=== PATIENT | male | born 1950 | race Caucasian/White ===

== ENCOUNTER 2018-04-29 06:25 | Inpatient (IN) | payer BC ==
[~2018-04-29] VITALS: Ht 182.9 cm; Wt 87.5 kg
[~2018-04-29 06:25] MED LIST: FLAGYL250 MG PO; LISINOPRIL30 MG PO; NORCO 7.5-3251 EACH PO; NORVASC5 MG PO; PANTOPRAZOLE SO40 MG PO; TRAMADOL PO; TRAZODONE PO; ULTRAM50 MG PO; XELJANZ PO; Z.0.NEXIUM40 MG PO; Z.0.PLAQUENIL200 MG PO; Z.0.ZESTRIL5 MG PO
[2018-04-29 07:52] LABS: BASOPHILS % 0.3 % (0.0-1.0); HEMATOCRIT 33.2 % (38.2-49.6); HEMOGLOBIN 12.2 g/dL (14.0-18.0); LYMPHOCYTES # (AUTO) 0.1 (1.0-3.2); LYMPHOCYTES % 1.2 % (18.0-39.1); MEAN CORPUSCULAR HEMOGLOBIN 36.4 pg (28-32); MEAN CORPUSCULAR HGB CONC 36.7 g/dL (31-35); MEAN CORPUSCULAR VOLUME 99.1 fL (81-99); MONOCYTES # (AUTO) 0.5 (0.2-0.8); MONOCYTES % 5.6 % (4.4-11.3); NEUTROPHILS # (AUTO) 8.4 (2.1-6.9); NEUTROPHILS % 91.1 % (38.7-80.0); PLATELET COUNT 142 x10e3/uL (140-360); RED BLOOD COUNT 3.35 x10e6/uL (4.3-5.7); RED CELL DISTRIBUTION WIDTH 13.1 % (11.7-14.4)
[2018-04-29] MEDS ORDERED: ONDANSETRON HCL INJ 2 MG/ML VIAL IV STA (07:54)
[2018-04-29] MEDS ORDERED: MORPHINE SULFATE 2 MG/ML SYR IV STA (07:54)
[2018-04-29] MEDS ORDERED: ACETAMINOPHEN 325 MG TAB PO ONE (08:00)
[2018-04-29] MEDS ORDERED: SODIUM CHLORIDE 0.9% 1000ML 1,000 ML IV SCH ×2 (08:00→12:15)
[2018-04-29 08:01] LABS: INR 1.22; PROTHROMBIN TIME 14.5 seconds (11.9-14.5)
[2018-04-29 08:02] LABS: PARTIAL THROMBOPLASTIN TIME 33.7 seconds (23.8-35.5)
[2018-04-29 08:09] LABS: ALANINE AMINOTRANSFERASE 22 IU/L (0-55); ALBUMIN 3.3 g/dL (3.5-5.0); ALBUMIN/GLOBULIN RATIO 0.8 (0.8-2.0); ALKALINE PHOSPHATASE 47 IU/L (40-150); ANION GAP 16.6 mmol/L (8-16); BLOOD UREA NITROGEN 20 mg/dL (7-26); BUN/CREATININE RATIO 19 (6-25); CARBON DIOXIDE 25 mmol/L (22-29); CHLORIDE 84 mmol/L (98-107); CREATINE KINASE 472 IU/L (30-200); CREATININE, SERUM 1.06 mg/dL (0.72-1.25); EST GLOMERULAR FILTRATION RATE > 60 ML/MIN (60-); GLUCOSE 93 mg/dL (74-118); MAGNESIUM 1.2 MG/DL (1.3-2.1); POTASSIUM 3.6 mmol/L (3.5-5.1); SODIUM 122 mmol/L (136-145)
[2018-04-29] MEDS ORDERED: KETOROLAC TROMETHAMINE 30 MG/ML VIAL IV ONE (09:30)
[2018-04-29 10:24] LABS: CLARITY,URINE SL CLOUDY (CLEAR); COLOR,URINE AMBER (YELLOW)
[2018-04-29 10:25] LABS: BILIRUBIN,URINE NEGATIVE (NEGATIVE); KETONES,URINE NEGATIVE (NEGATIVE); LEUKOCYTE ESTERASE ,URINE NEGATIVE (NEGATIVE); NITRITE,URINE NEGATIVE (NEGATIVE); PROTEIN,URINE DIPSTICK 1+ (NEGATIVE); URINE UROBILINOGEN 0.2 mg/dL (0.2 - 1)
[2018-04-29 10:36] LABS: BAND NEUTROPHILS % (MANUAL) 5 %; LYMPHOCYTES % (MANUAL) 1 % (19-48); MONOCYTES % (MANUAL) 4 % (3.4-9.0); MYELOCYTES % (MANUAL) 1 % (0-0); NEUTROPHILS % (MANUAL) 89 % (40-74)
[2018-04-29 10:40] LABS: BACTERIA,URINE RARE /HPF; EPITHELIAL CELLS,URINE FEW /LPF
[2018-04-29 10:42] LABS: PLATELET ESTIMATE SLIGHTLY DECREASED; PLATELET MORPHOLOGY COMMENT NORMAL; RBC MORPHOLOGY COMMENT NORMAL
--- NOTE | 2018-04-29 11:24 | Diagnostic Imaging Report ---
PROCEDURE: A single AP view of the chest. COMPARISON: None. INDICATIONS: BODY ACHES ALL OVER FINDINGS: Lines/tubes: None. Lungs: Low lung volumes. Patchy bibasilar opacities, right greater than left. No evidence of pulmonary edema. Pleura: There is no pleural effusion or pneumothorax. Heart and mediastinum: The cardiomediastinal silhouette is unremarkable. Bones: No acute bony abnormality. IMPRESSION: Low lung volumes with patchy bibasilar opacities which could reflect atelectasis or pneumonia in the appropriate clinical setting. Dictated by: LON MERCADO M.D. on 04/29/2018 at 7:53 Electronically approved by: LON MERCADO M.D. on 04/29/2018 at 7:53
[2018-04-29] MEDS ORDERED: HYDROMORPHONE 1MG/1ML INJ IV ONE ×2 (12:00→16:45)
--- NOTE | 2018-04-29 12:33 | Diagnostic Imaging Report ---
EXAMINATION: CT of the abdomen and pelvis without contrast. TECHNIQUE: Spiral CT images of the abdomen and pelvis were performed from the lung bases to the lesser trochanters. No intravenous contrast was given per physician's request Coronal and sagittal reformatted images were obtained. COMPARISON: CT abdomen and pelvis with contrast 07/12/2017 CLINICAL HISTORY:Right flank pain DISCUSSION: ABSENCE OF INTRAVENOUS CONTRAST DECREASES SENSITIVITY FOR DETECTION OF FOCAL LESIONS AND VASCULAR PATHOLOGY. ABDOMEN/PELVIS: LOWER THORAX: Stable linear opacities in the anterior right lower lobe (series 3, image 7), lingula (series 3, image 31) and right middle lobe (series 3, image 7), consistent with scarring. Atherosclerotic calcification of the coronary arteries and thoracic aorta. HEPATOBILIARY: Diffuse hepatic steatosis. 1.1 cm fluid density lesion in hepatic segment V (series 3, image 65), consistent with a simple cyst. 4 mm hypodense lesion in hepatic segment IV (series 3, image 45), which is too small to characterize. No other focal lesions. No intra or extrahepatic biliary ductal dilation. GALLBLADDER: 3-4 mm calcified gallstone in the dependent portion of the gallbladder lumen. No wall thickening. SPLEEN: No splenomegaly. PANCREAS: No focal masses or ductal dilatation. Marked pancreatic atrophy. ADRENALS: No adrenal nodules. KIDNEYS/URETERS: No renal or ureteral calculi, hydronephrosis or obstruction. No contour abnormalities. No significant perinephric stranding. PELVIC ORGANS/BLADDER: No bladder focal lesions or thickening. No bladder calculi. Prostate and seminal vesicles are unremarkable. PERITONEUM/RETROPERITONEUM: No free air or fluid. LYMPH NODES: No intra-abdominal,retroperitoneal, pelvic or inguinal lymphadenopathy. VESSELS: Atherosclerotic calcification of the abdominal aorta and iliac vessels. GI TRACT: No bowel dilation or evidence of obstruction. Appendix is well identified and normal in caliber. BONES AND SOFT TISSUES: No aggressive lytic lesions. Marked multilevel degenerative disc changes predominantly at L3-L4 L4-L5 and L5-S1, with associated rightward curvature of the lower lumbosacral spine. Facet hypertrophy L4-S1. Stable bone islands in the left femoral head. IMPRESSION: 1. No renal, ureteral or bladder calculi. No hydronephrosis or obstruction. 2. Diffuse hepatic steatosis. 3. Cholelithiasis, without CT evidence of cholecystitis. Signed by: Dr. Jose Forbes M.D. on 04/29/2018 12:30 PM
[2018-04-29] MEDS ORDERED: HYDROCODONE/APAP 7.5MG-325MG 1 EA TAB PO PRN (13:45)
[2018-04-29] MEDS ORDERED: HYDROMORPHONE 1MG/1ML INJ IV PRN (13:45)
[2018-04-29] MEDS: CEFTRIAXONE SOD 1 GM VIAL IV SCH (14:02)
[2018-04-29] MEDS ORDERED: ONDANSETRON HCL INJ 2 MG/ML VIAL ONE (14:19)
[2018-04-29] MEDS: AZITHROMYCIN 500MG/NS 250 ML 250 ML IV SCH (14:20)
[2018-04-29] MEDS ORDERED: ONDANSETRON HCL INJ 2 MG/ML VIAL IV ONE (14:30)
[2018-04-29] MEDS ORDERED: HYDROCHLOROTHIA25 MG PO (14:57)
[2018-04-29] MEDS: ALBUTEROL/IPRATROPIUM 3 ML NEB NEB SCH ×3 (15:00→23:00)
[2018-04-29] MEDS: SODIUM CHLORIDE 0.9% 1000ML 1,000 ML IV SCH ×2 (15:29→22:50)
[2018-04-29 16:30] VITALS: BP 133/91
[2018-04-29 17:51] VITALS: BP 155/92
[2018-04-29 17:52] VITALS: BP 133/92
[2018-04-29] MEDS ORDERED: ACETAMINOPHEN 325 MG TAB PO PRN (18:15)
[2018-04-29] MEDS ORDERED: MORPHINE SULFATE INJ 4 MG/ML INJ IV PRN (18:15)
[2018-04-29] MEDS: HYDROCODONE/APAP 10MG-325MG TAB PO PRN ×2 (18:42→22:35)
[2018-04-29] MEDS ORDERED: FENTANYL 25 MCG/HR PATCH TOP SCH (18:45)
[2018-04-29 20:00] VITALS: BP 146/92
[2018-04-29] MEDS: MORPHINE SULFATE 2 MG/ML SYR IV PRN (20:15)
[2018-04-29] MEDS: TRAZODONE HCL 50 MG TAB PO SCH (20:16)
[2018-04-29] MEDS: TRAMADOL HCL 50 MG TAB PO SCH (23:10)
[2018-04-30] VITALS (13 sets, daily range): BP systolic 138–166; BP diastolic 60–116
[2018-04-30] MEDS: CEFTRIAXONE SOD 1 GM VIAL IV SCH ×2 (00:36→13:00)
[2018-04-30] MEDS: MORPHINE SULFATE 2 MG/ML SYR IV PRN ×4 (00:37→23:26)
[2018-04-30] MEDS: HYDROCODONE/APAP 10MG-325MG TAB PO PRN ×3 (02:03→14:00)
[2018-04-30 03:26] LABS: BASOPHILS % 0.4 % (0.0-1.0); EOSINOPHILS % 0.4 % (0.0-6.0); HEMATOCRIT 33.5 % (38.2-49.6); HEMOGLOBIN 12.3 g/dL (14.0-18.0); LYMPHOCYTES # (AUTO) 0.2 (1.0-3.2); LYMPHOCYTES % 8.4 % (18.0-39.1); MEAN CORPUSCULAR HGB CONC 36.7 g/dL (31-35); MONOCYTES # (AUTO) 0.3 (0.2-0.8); MONOCYTES % 11.8 % (4.4-11.3); NEUTROPHILS # (AUTO) 2.1 (2.1-6.9); NEUTROPHILS % 78.2 % (38.7-80.0); PLATELET COUNT 104 x10e3/uL (140-360); RED BLOOD COUNT 3.42 x10e6/uL (4.3-5.7)
[2018-04-30 03:43] LABS: ALANINE AMINOTRANSFERASE 34 IU/L (0-55); ALBUMIN/GLOBULIN RATIO 0.8 (0.8-2.0); ALKALINE PHOSPHATASE 41 IU/L (40-150); ANION GAP 17.6 mmol/L (8-16); BLOOD UREA NITROGEN 13 mg/dL (7-26); BUN/CREATININE RATIO 17 (6-25); CALCIUM 8.5 mg/dL (8.4-10.2); CARBON DIOXIDE 22 mmol/L (22-29); CHLORIDE 87 mmol/L (98-107); CREATININE, SERUM 0.78 mg/dL (0.72-1.25); EST GLOMERULAR FILTRATION RATE > 60 ML/MIN (60-); GLUCOSE 69 mg/dL (74-118); POTASSIUM 3.6 mmol/L (3.5-5.1); SODIUM 123 mmol/L (136-145)
[2018-04-30] MEDS: ALBUTEROL/IPRATROPIUM 3 ML NEB NEB SCH ×6 (03:45→23:15)
[2018-04-30 03:48] LABS: BAND NEUTROPHILS % (MANUAL) 5 %; EOSINOPHILS % (MANUAL) 1 % (0-7); LYMPHOCYTES % (MANUAL) 10 % (19-48); MONOCYTES % (MANUAL) 10 % (3.4-9.0); NEUTROPHILS % (MANUAL) 74 % (40-74)
[2018-04-30 03:49] LABS: PLATELET ESTIMATE MODERATELY DECREASED; PLATELET MORPHOLOGY COMMENT NORMAL; RBC MORPHOLOGY COMMENT NORMAL
[2018-04-30] MEDS: TRAMADOL HCL 50 MG TAB PO SCH (05:30)
[2018-04-30] MEDS ORDERED: SODIUM CHLORIDE 1 GM TAB PO SCH (07:45)
[2018-04-30] MEDS: AZITHROMYCIN 500MG/NS 250 ML 250 ML IV SCH (08:27)
[2018-04-30] MEDS: HYDROXYCHLOROQUINE SULFATE 200 MG TAB PO SCH (08:28)
[2018-04-30] MEDS: XELJANZ 5 MG PO SCH ×2 (08:28→18:32)
[2018-04-30] MEDS: LISINOPRIL 20 MG TAB PO SCH (08:28)
[2018-04-30] MEDS: SODIUM CHLORIDE 0.9% 1000ML 1,000 ML IV SCH ×2 (08:50→20:52)
[2018-04-30] MEDS ORDERED: NON-FORMULARY MEDICATION (Lisinopril 30 MG) PO SCH (09:00)
[2018-04-30] MEDS: LORATADINE 10 MG TAB PO SCH (09:51)
[2018-04-30] MEDS: LIDOCAINE 5% PATCH TP SCH (10:24)
[2018-04-30 10:32] LABS: BASOPHILS % 0.4 % (0.0-1.0); HEMATOCRIT 32.7 % (38.2-49.6); HEMOGLOBIN 12.1 g/dL (14.0-18.0); LYMPHOCYTES # (AUTO) 0.1 (1.0-3.2); LYMPHOCYTES % 3.5 % (18.0-39.1); MEAN CORPUSCULAR HEMOGLOBIN 35.9 pg (28-32); MONOCYTES # (AUTO) 0.4 (0.2-0.8); MONOCYTES % 16.6 % (4.4-11.3); NEUTROPHILS % 78.7 % (38.7-80.0); PLATELET COUNT 105 x10e3/uL (140-360); RED BLOOD COUNT 3.37 x10e6/uL (4.3-5.7); RED CELL DISTRIBUTION WIDTH 12.9 % (11.7-14.4)
--- NOTE | 2018-04-30 12:25 | Diagnostic Imaging Report ---
KNEE RIGHT THREE VIEWS - 3 views HISTORY: Paiin status post fall. COMPARISON: None available. FINDINGS: Bones: No acute displaced fracture. Ill-defined lucent lesion with sclerotic margins in the distal medial femoral metadiaphysis is nonspecific, and may reflect a partially calcified bone infarct. Joints: Status post total knee arthroplasty with prosthesis in adequate position. Soft tissues: [Moderate volume suprapatellar effusion]. IMPRESSION: 1. Status post total knee arthroplasty with prosthesis in adequate position. 2. Ill-defined lucent lesion with sclerotic margins in the distal medial femoral metadiaphysis is nonspecific, and may reflect a partially calcified bone infarct. 3. Moderate volume suprapatellar effusion. Signed by: Dr. Keturah West M.D. on 04/30/2018 12:22 PM
--- NOTE | 2018-04-30 12:27 | Diagnostic Imaging Report ---
SHOULDER RIGHT COMPLETE - 3 views HISTORY: Status post fall. COMPARISON: None available. FINDINGS: Bones: No acute displaced fracture. Tiny ossicles projected superior to the distal clavicle nonspecific, possibly related to above.. Joints: Moderate degenerative changes of the glenohumeral joint. Mild degenerative changes of the AC joint. Elevation of the humeral head may be positional or related to rotator cuff pathology. Soft tissues: Mild calcific tendinosis. Soft tissue swelling superior to the AC joint. IMPRESSION: Moderate degenerative changes of the glenohumeral joint. Mild degenerative changes of the AC joint. Signed by: Dr. Keturah West M.D. on 04/30/2018 12:24 PM
[2018-04-30] MEDS: METOCLOPRAMIDE HCL 10 MG/2ML VIAL IV SCH ×3 (12:30→20:52)
[2018-04-30] MEDS: IMMUNE GLOBULIN IV SCH (12:30)
[2018-04-30] MEDS ORDERED: DIPHENHYDRAMINE HCL INJ 50 MG/ML VIAL IV PRN (13:15)
[2018-04-30] MEDS ORDERED: HYDROCODONE/APAP 10MG-325MG TAB PO PRN (14:30)
[2018-04-30] MEDS ORDERED: ERTAPENEM 1GM/NS 100ML 100 ML IV SCH (14:45)
[2018-04-30] MEDS ORDERED: HYDROMORPHONE 1MG/1ML INJ IV NR ×2 (14:52→18:15)
[2018-04-30] MEDS ORDERED: ERTAPENEM 1 GM VIAL IV SCH (15:00)
[2018-04-30] MEDS ORDERED: NALOXONE HCL INJ 0.4 MG/ML AMP IV PRN (17:00)
[2018-04-30] MEDS ORDERED: SODIUM CHLORIDE 0.9% 500ML 500 ML ONE (17:09)
--- NOTE | 2018-04-30 17:17 | History and Physical ---
CHIEF COMPLAINT: Rheumatoid arthritis, pain and fever. HISTORY OF PRESENT ILLNESS: The patient is a 67-year-old man. He has a history of severe rheumatoid arthritis and chronic inflammatory demyelinating polyneuropathy. He was receiving IVIG through Dr. Mustafa's office. He was also receiving a tumor necrosis factor inhibitor through Dr. Vergara. He came to the hospital complaining of worsening pain. The most severe pain was in his lower back as well as his left shoulder. He has received some morphine with minimal relief. He was also found to have a low sodium of 123 in the emergency department. He had a white blood cell count of 2.6 and hemoglobin of 12.1. He had a platelet count of 105. The VAP-vc-ndqexroeax ratio is normal. He also had a low-grade fever. PAST SURGERIES 1. Status post cervical spine fusion. 2. Knee surgery. 3. Thumb surgery. PAST MEDICAL HISTORY 1. Hypertension. 2. Rheumatoid arthritis. 3. Chronic demyelinating inflammatory polyneuropathy. He is seeing Dr. Yinka Chris as an outpatient. During the prior admission to the hospital, he saw Dr. King. He also sees Dr. Mustafa for neurology and Dr. Vergara for rheumatology. SOCIAL HISTORY: He is not a drinker or smoker. FAMILY HISTORY: Noncontributory. ALLERGIES: THERE ARE NO KNOWN ALLERGIES. REVIEW OF SYSTEMS: He has no headache. There is no neck pain. He is not having any chest pain. He does note pain in his shoulder and his lower back. He has no abdominal pain. He has no nausea or vomiting. He is not having any leg edema. He has been more confused. PHYSICAL EXAMINATION VITALS: The patient is afebrile. The blood pressure is 143/46, and the pulse is 101. HEENT: No facial swelling or erythema. The nasal mucosa is normal. The oropharynx is normal. LYMPHATIC: No submandibular, cervical or supraclavicular adenopathy. CARDIAC: Regular rate and rhythm with a normal S1 and S2. LUNGS: Auscultation of the lungs reveals clear breath sounds bilaterally. There is no wheezing. ABDOMEN: Soft and nontender. There is no rebound or guarding. EXTREMITIES: Some swelling in the knee. He has changes consistent with rheumatoid arthritis. LABORATORY DATA: Sodium is 123. The XLP-ro-qhewlhnpuw ratio is normal. The bilirubin is 1.7. The white blood cell count is 2.6, hemoglobin 12.1, platelet count 105. RADIOGRAPHIC DATA: Chest x-ray shows low lung volumes with possible bibasilar opacities. IMPRESSION 1. Severe polyarticular rheumatoid arthritis with worsening pain. 2. Fever while on infusions for rheumatoid arthritis. 3. Thrombocytopenia. 4. Leukopenia. 5. Chronic degenerative disease in the cervical and lumbar spine. 6. Chronic inflammatory demyelinating polyneuropathy. PLAN 1. The patient will need aggressive management to try and control his pain. 2. Panculture and begin antibiotics. 3. ID consult. 4. Fluid restriction. 5. Monitor sodium. 6. Monitor mental status. 7. Restart IVIG. 8. Obtain results of CT scans of the lumbar and cervical spine. Job#: [id number]
[2018-04-30] MEDS ORDERED: HYDROMORPHONE 1MG/1ML INJ ONE (17:49)
[2018-04-30] MEDS: VANCOMYCIN HCL 1.25 GM in SODIUM CHLORIDE 0.9% 250ML 300 ML IV SCH (18:33)
--- NOTE | 2018-04-30 18:54 | Consultation ---
DATE OF CONSULTATION: April 30, 2018 NEUROLOGY CONSULTATION HISTORY OF PRESENT ILLNESS: Mr. 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 Mr. Grimm was diagnosed with CIDP approximately 4 years ago. His outpatient neurologist, Dr. Rip Mustafa, recommended treatment with infusions of IVIG. However, the patient declined such treatment for approximately 3-1/2 years. During that time, the patient's weakness in his legs and feet, sensory loss in his feet, and gait and balance progressively worsened. After discussion with his and Dr. Mustafa, Mr. Grimm did agree to undergo IVIG infusions. The patient received his induction infusion of 2 g/kg intravenously divided over 5 days in October 2017. He then received a maintenance dose of IVIG 1 g/kg intravenously every 4 weeks thereafter. His last dose of IVIG was given in late February 2018. While receiving treatment with IVIG, the strength in the patient's lower extremities improved. Sensation returned to his feet. His gait and balance improved. Mr. Grimm was able to ambulate unassisted in his home. In the community, he carried a cane with him, but did not always use it. Despite this improvement, Mr. Grimm reported diminished benefit with each successive infusion of IVIG. Therefore, in February 2018, Dr. Mustafa recommended increasing his maintenance dose to 2 g/kg. Unfortunately, treatment with the increased dose of IVIG was denied by the patient's insurance company. This denial has resulted in the patient going without IVIG for the past 6 to 7 weeks. During that time, the patient has experienced worsening lower extremity weakness, loss of sensation in both feet, and impairment of balance and gait. In the past several weeks, Mr. Grimm has fallen twice, with the most recent fall being 10 days ago. The 1st fall resulted from the patient becoming twisted in a blanket and falling to the floor, injuring his left arm. The most recent fall occurred while the patient was going down stairs. He tripped over his feet and fell, injuring his right hand and arm. Mr. Grimm did not hit his head as a result of either fall. There was no loss of consciousness associated with either fall. REVIEW OF SYSTEMS: Confusion, weakness of the legs, numbness of the legs and feet, impairment of balance and gait, falls times 2. Otherwise, the 12-point review of systems is unremarkable. Of note, though the patient is being treated for possible pneumonia, Mr. Grimm does not report shortness of breath, productive cough, wheezing, or other symptoms commonly associated with a respiratory infection. PAST MEDICAL HISTORY: Hypertension, rheumatoid arthritis, osteoarthritis, gout, frequent headaches, severe lumbar spondylosis resulting in chronic low back pain, and CIDP. PAST SURGICAL HISTORY: Fusion of cervical spine (levels not known), multiple knee surgeries, right knee replacement, right ankle surgery, thumb surgery. PAST HOSPITALIZATIONS: Surgeries/procedures as listed, sepsis. FAMILY MEDICAL HISTORY: The patient's paternal grandparents are . Both from natural causes. Patient's maternal grandparents are . Their medical histories are unknown. Mr. Grimm's father is alive and healthy. His mother is alive. She has coronary artery disease and Alzheimer's disease. Mr. Grimm has 2 brothers, both of whom are alive. The elder brother has end-stage renal disease and is on hemodialysis. The younger brother has diabetes mellitus and prostate cancer. Mr. Grimm has no biological children. SOCIAL HISTORY: The patient is . He does endorse the use of chewing tobacco, nearly daily. He reports drinking vodka occasionally. The patient uses marijuana, with the most recent use being approximately 2 days ago. 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 HOME MEDICATIONS 1. Hydrochlorothiazide 25 mg by mouth daily. 2. Plaquenil 300 mg by mouth daily. 3. Lisinopril 30 mg by mouth daily. 4. Tramadol 100 mg by mouth every 6 hours. 5. Trazodone 50 mg by mouth at bedtime as needed for insomnia. 6. Xeljanz 5 mg. ALLERGIES: NO KNOWN DRUG ALLERGIES. NO KNOWN FOOD ALLERGIES. NO KNOWN ALLERGIES TO LATEX. NO KNOWN ALLERGIES TO IODINE OR OTHER CONTRAST MATERIALS. PHYSICAL EXAMINATION VITAL SIGNS: Height 72 inches, weight 185 pounds, BMI 25.1 kg per meter squared. Blood pressure 166/85 mmHg. Pulse 108 beats per minute. Respiratory rate 16 breaths per minute. Oxygen saturation 98% on room air. GENERAL: The patient is awake and alert, mildly confused. He does not appear distressed. HEENT: Normocephalic, atraumatic. Pupils are equal, round, sluggishly reactive to light. Moist mucous membranes. NECK: Supple. No appreciable thyromegaly. No appreciable carotid bruits. CARDIOVASCULAR: S1, S2, tachycardic, regular rhythm. A mild systolic ejection murmur is appreciated. RESPIRATORY: Clear to auscultation bilaterally. No wheezes, rhonchi or rales. EXTREMITIES: The skin is warm and dry. No clubbing, cyanosis, or edema. The posterior tibial and dorsalis pedis pulses are 2+ and symmetric. SKIN: Abrasions over the right hand and forearm. NEUROLOGIC EXAMINATION MEMORY/ATTENTION: The patient is awake, alert, and oriented to person, minimally to place and situation, but not time. CRANIAL NERVES: Cranial nerve I: Not tested. Cranial nerves II, III, IV, and : Pupils are equal and round, react sluggishly to light (from 4 mm to 2 mm). Extraocular movements intact. No nystagmus. Cranial nerve V: Sensation to light touch and pinprick is intact in the bilateral V1 through V3 distributions. Strength of the temporalis and masseter muscles is within normal limits. Cranial nerve VII: The face is symmetric as are all facial movements. Strength is within normal limits. Cranial nerve VIII: Hearing is intact to finger rub bilaterally. Cranial nerves IX and X: The soft palate elevates equally and symmetrically. Cranial nerve XI: Normal strength of the bilateral sternocleidomastoid and trapezius muscles. Cranial nerve XII: The tongue protrudes midline and moves symmetrically from side to side. STRENGTH: Bulk is normal. Strength is 5/5 in the bilateral deltoids, biceps, and triceps. Strength is 5/5 in the wrist flexors, 4/5 in the wrist extensors, 3+/5 in the finger flexors, 3/5 in the finger extensors, 3/5 in the intrinsic hand muscles, 5/5 in the hip flexors, 4/5 in the knee flexors, 5/5 in the knee extensors, left ankle dorsiflexion is 3+/5, right ankle dorsiflexion is 4/5, left ankle plantarflexion is 4/5, right ankle plantarflexion is 5-/5, and intrinsic foot muscles 3/5. Tone is normal. DTRs: Deep tendon reflexes are absent and symmetric at the triceps, biceps, brachioradialis, patellas, and Achilles. Plantar responses are mute bilaterally. SENSATION: Sensation is intact to light touch in both arms and both legs. Sensation is intact to pinprick in both arms. Sensation is diminished to pinprick in both legs. CEREBELLAR: Zsbkuc-oeoc-bdiotn and heel-durán movements are slowed without dysmetria or other impairment. Rapid alternating movements are impaired at the feet. GAIT: Deferred. SPEECH: Spontaneous speech is normal without appreciable dysarthria or aphasia. Repetition is intact. INVOLUNTARY MOVEMENTS: None. PRONATOR DRIFT: As per motor exam. LABORATORY DATA: Sodium 123, potassium 3.6, chloride 87, carbon dioxide 22, anion gap 17.6, BUN 13, creatinine 0.78, estimated GFR greater than 60, OEM-rx-esfrwpsqlw ratio 17. Glucose 69, calcium 8.5. Total bilirubin 1.7, AST 68, ALT 34, alkaline phosphatase 41. Total protein 6.7, albumin 3.0, globulin 3.7, jikawhj-ar-tieqtsce ratio 0.8. Lactic acid 19.8, 13.9. Magnesium 1.2, 1.9. Creatine kinase 472. CK-MB 3.70. Troponin I 0.027. The CBC with differential and platelets reveals a white blood cell count of 2.59 with 78.7% neutrophils, 3.5% lymphocytes, 16.6% monocytes, 0.0% eosinophils, and 0.4% basophils. The hemoglobin and hematocrit are 12.1 and 32.7, respectively. The platelet count is 105. PT 14.5, INR 1.22, PTT 33.7. Urinalysis performed on April 29, 2018, was significant for the urine being stephania in color, slightly cloudy, specific gravity of 1.030, 1+ protein, 3+ blood, 6-10 red blood cells, and 1-5 coarse granular casts. Influenza types A, B antigen negative. Blood cultures drawn on April 29, 2018, showed gram-positive cocci in clusters on Gram stain. Growth is detected, culture results are pending. A urine culture collected on April 29, 2018, shows no growth at 18 to 24 hours. DIAGNOSTIC STUDIES 1. Chest x-ray, 04/29/2018: Low lung volumes with patchy bibasilar opacities which could reflect atelectasis or pneumonia in the appropriate clinical setting. 2. CT of the abdomen/pelvis without contrast 04/29/2018: 1) No renal, ureteral or bladder calculi. No hydronephrosis or obstruction. 2) Diffuse hepatic steatosis. 3) Cholelithiasis, without CT evidence of cholecystitis. 3. Right shoulder x-ray, 04/30/2018: Moderate degenerative changes of the glenohumeral joint. Mild degenerative changes of AC joint. 4. Right knee x-ray, 04/30/2018: 1) Status post total knee arthroplasty with prosthesis in adequate position. 2) Ill-defined lucent lesion with sclerotic margins in the distal medial femoral metadiaphysis is nonspecific and may reflect a partially calcified bone infarct. 3) Moderate volume suprapatellar effusion. ASSESSMENT AND PLAN: Mr. Grimm is a 67-year-old, hbisv-rnms-jmfeujxo man with past medical history significant for hypertension, rheumatoid arthritis, and chronic inflammatory demyelinating polyradiculoneuropathy, admitted to [facility] on April 29, 2018, with hyponatremia, possible pneumonia, moderately worsening weakness of the lower extremities, decreased sensation of the feet, and gait and balance impairment resulting in 2 falls with the most recent fall being 10 days ago. On neurological examination, the patient has mild to moderate weakness of the distal musculature of the arms and legs. Deep tendon reflexes cannot be elicited, and plantar responses are mute bilaterally. Sensation to pinprick is diminished over both legs. While gait is deferred during this evaluation, both the patient and his report moderate worsening of balance and gait over the past several weeks. Mr. Grimm's laboratory data and other diagnostic studies have been reviewed and are documented above. As detailed in history of present illness, Mr. Grimm has a known history of chronic inflammatory demyelinating polyradiculoneuropathy, treated as recently as late February 2018 with monthly infusions of IVIG. While the patient did experience improvement of his symptoms while receiving infusions of IVIG, the benefit diminished with each subsequent infusion. Therefore, his outpatient neurologist, Dr. Rip Mustafa, recommended increasing the dose to 2 g/kg for the maintenance infusions. I have spoken with Dr. Mustafa regarding this patient. When comparing Dr. Mustafa's most recent neurological evaluation with mine, there has been moderate worsening of the patient's strength, sensation, and gait. Undoubtedly, this worsening is due to the patient going 6 to 7 weeks without receiving intravenous immunoglobulin. Therefore, Mr. Grimm will be treated with IVIG during this hospitalization. On review of the patient's laboratory data, Mr. Grimm has marked leukopenia with a white blood cell count of 2.59. He is anemic and thrombocytopenic as well. In speaking with Dr. Mustafa, it was discovered the patient's blood counts have gradually fallen over a period of several months. Due to the gradually worsening pancytopenia, it is unlikely the results of the CBC with differential and platelets are due to the patient's possible pneumonia. It is possible Mr. Grimm's pancytopenia is due to an underlying autoimmune or neoplastic process. A consultation with hematology/oncology will be requested. RECOMMENDATIONS 1. Mr. Grimm will be treated with IVIG 2 g/kg intravenously divided over 2 to 3 days. 2. A physical therapy evaluation has been ordered and is pending. 3. Due to the patient's progressively worsening pancytopenia, a consult by Dr. Roger Powell, (hematology/oncology) will be ordered. 4. Mr. Grimm appears mildly confused during this encounter. His metabolic encephalopathy is likely secondary to hyponatremia as well as the use of sedative/hypnotic and pain medications. The primary care service has held his thiazide diuretic, suspecting this is the source of his hyponatremia. It is recommended sedative/hypnotic and pain medications be used as sparingly of possible as these medicines will alter the patient's sensorium. 5. Defer treatment of the remaining medical comorbidities to the primary and other services following the patient. Thank you for this consultation. I will continue to follow the patient while he remains in the hospital. Time spent: 120 minutes. Job#: [id number] GERMÁN LUCIANO
[2018-04-30] MEDS: HYDROMORPHONE 0.2MG/ML-SOD CHL 30ML PCA SYRINGE IV PRN (18:56)
[2018-04-30] MEDS: TRAZODONE HCL 50 MG TAB PO SCH (20:52)
--- NOTE | 2018-04-30 22:11 | Consultation ---
DATE OF CONSULTATION: April 30, 2018 ATTENDING PHYSICIAN: Dr. Yinka Juarez REASON FOR CONSULTATION: Positive blood culture, fever and leukopenia. Thank you Dr. Campbell and Dr. Juarez for asking me to see this patient. HISTORY: The patient is a 67-year-old man referred for positive blood culture, fever, and leukopenia. The patient presented to the emergency department yesterday with generalized body aches which made him unable to get comfortable. He did not feel feverish and denies cough, shortness of breath. No nausea, vomiting, diarrhea, abdominal pain, and dysuria. He has a chronic postnasal drip. He denies sick contact and recent travel. He has 2 dogs which are healthy and denies tick and flea exposure. The patient takes Xeljanz, he takes Xeljanz for rheumatoid arthritis. In the emergency room, he was noted to have temperature of 100.6 degrees Fahrenheit, pulse 107, respiratory rate 18, blood pressure 127/86, and oxygen saturation 99% on room air. Initial laboratory studies showed blood leukocyte count of 9250 with 89% segments and 5% bands, BUN 20, creatinine 1.06, AST 43, ALT 22, alk phos 47, and total bilirubin 1.1. Urinalysis was negative for pyuria. Chest x-ray showed low lung volumes with patchy bibasilar opacities. CT scan of the abdomen and pelvis showed diffuse hepatic steatosis and cholelithiasis without CT evidence of cholecystitis. PAST MEDICAL HISTORY: Hypertension, rheumatoid arthritis, neuropathy, chronic back pain, and seasonal allergies. PAST SURGICAL HISTORY: Cervical fusion, hemorrhoidectomy, right thumb surgery, right ankle surgery, and right total knee arthroplasty. ALLERGIES: NO KNOWN DRUG ALLERGIES. MEDICATIONS: The current antibiotics are ertapenem 1 g IV piggyback q.24h., azithromycin 500 mg IV piggyback q.24h. He received ceftriaxone 1 g earlier. IMMUNIZATION: He received pneumococcal vaccination prior to admission. FAMILY HISTORY: Noncontributory. SOCIAL HISTORY: He drinks 2 to 3 glasses of wine a week. No tobacco use. REVIEW OF SYSTEMS: As per history of present illness. Patient fell moments ago. PHYSICAL EXAMINATION: GENERAL: Patient is in moderate painful distress. VITAL SIGNS: T-max 99.9, pulse 101, respiratory rate 16, blood pressure 143/96. Weight 185 pounds. HEENT: Normocephalic. There is no icterus or injection of conjunctivae. There is no ear or nasal discharge. Moist oral mucosa. No pharyngeal erythema or exudate. NECK: Supple. No meningismus or JVD. LUNGS: Decreased breath sounds bilaterally. HEART: Normal S1 and S2. Regular. ABDOMEN: Soft and nontender. EXTREMITIES: There is right shoulder effusion as well as right knee effusion. There is swelling of the metacarpophalangeal joints and the proximal interphalangeal joints without redness or evidence of effusion. There is also no evidence of wrist inflammation bilaterally. The elbows showed no inflammation as well. The left shoulder is mildly tender on palpation. In the bilateral knees, there is healed scar on the right knee with effusion, but no warmth or redness. There is mild redness of the left knee without effusion. There is no tenderness on palpation. SKIN: Mild erythema of the left knee with slight bruising of the right and left knee. NAIL TECH: Mildly sedated from narcotics, but easily arousable. Nonfocal. LABORATORY AND DIAGNOSTICS: WBC 2590, hemoglobin 12.1, platelets 105,000, neutrophils 78.7, lymph 3.5, monos 16.6, eosinophils 0, basophil 0.4. BUN 13, creatinine 0.78. AST 68, ALT 34, alk phos 41, total bilirubin 1.7. Blood culture is growing gram-positive cocci in clusters. IMPRESSION: 1. Positive blood culture. 2. Rheumatoid arthritis. 3. Neuropathy. PLAN: 1. Consult orthopedic service for right prosthetic knee aspiration, for synovial fluid analysis and culture. 2. Start vancomycin 1250 mg IV piggyback q.12h. 3. Pain control. The patient should be monitored closely in view of multiple narcotics. Thank you. Job#: [id number]
[2018-05-01] VITALS (55 sets, daily range): BP systolic 117–176; BP diastolic 84–148
[2018-05-01] MEDS: ALBUTEROL/IPRATROPIUM 3 ML NEB NEB SCH ×4 (04:35→15:00)
[2018-05-01] MEDS: SODIUM CHLORIDE 0.9% 1000ML 1,000 ML IV SCH ×2 (04:49→15:11)
[2018-05-01] MEDS: VANCOMYCIN HCL 1.25 GM in SODIUM CHLORIDE 0.9% 250ML 300 ML IV SCH ×2 (04:49→19:07)
[2018-05-01 04:55] LABS: BASOPHILS % 0.7 % (0.0-1.0); EOSINOPHILS % 0.2 % (0.0-6.0); HEMATOCRIT 31.2 % (38.2-49.6); HEMOGLOBIN 11.5 g/dL (14.0-18.0); LYMPHOCYTES # (AUTO) 0.3 (1.0-3.2); LYMPHOCYTES % 6.1 % (18.0-39.1); MEAN CORPUSCULAR HEMOGLOBIN 35.4 pg (28-32); MEAN CORPUSCULAR HGB CONC 36.9 g/dL (31-35); MONOCYTES # (AUTO) 0.6 (0.2-0.8); NEUTROPHILS # (AUTO) 3.3 (2.1-6.9); NEUTROPHILS % 77.3 % (38.7-80.0); PLATELET COUNT 107 x10e3/uL (140-360); RED BLOOD COUNT 3.25 x10e6/uL (4.3-5.7); RED CELL DISTRIBUTION WIDTH 12.8 % (11.7-14.4)
[2018-05-01 05:12] LABS: ALANINE AMINOTRANSFERASE 30 IU/L (0-55); ALBUMIN 2.2 g/dL (3.5-5.0); ALKALINE PHOSPHATASE 34 IU/L (40-150); ANION GAP 16.1 mmol/L (8-16); BILIRUBIN,DIRECT 0.7 mg/dL (0.0-0.5); BLOOD UREA NITROGEN 8 mg/dL (7-26); BUN/CREATININE RATIO 13 (6-25); CALCIUM 8.3 mg/dL (8.4-10.2); CARBON DIOXIDE 20 mmol/L (22-29); CHLORIDE 92 mmol/L (98-107); CREATININE, SERUM 0.64 mg/dL (0.72-1.25); EST GLOMERULAR FILTRATION RATE > 60 ML/MIN (60-); GLUCOSE 85 mg/dL (74-118); MAGNESIUM 1.3 MG/DL (1.3-2.1); POTASSIUM 3.1 mmol/L (3.5-5.1); SODIUM 125 mmol/L (136-145)
[2018-05-01] MEDS ORDERED: MAGNESIUM SULF 1GRAM/DEXTROSE 300 ML IV ONE (05:45)
[2018-05-01] MEDS ORDERED: HYDRALAZINE HCL 20 MG/ML VIAL IV PRN (05:45)
[2018-05-01 07:18] LABS: BAND NEUTROPHILS % (MANUAL) 1 %; LYMPHOCYTES % (MANUAL) 9 % (19-48); MONOCYTES % (MANUAL) 10 % (3.4-9.0); NEUTROPHILS % (MANUAL) 80 % (40-74)
[2018-05-01 07:19] LABS: PLATELET MORPHOLOGY COMMENT NORMAL; RBC MORPHOLOGY COMMENT NORMAL
[2018-05-01 07:20] LABS: PLATELET ESTIMATE SLIGHTLY DECREASED
[2018-05-01] MEDS: HYDROMORPHONE 0.2MG/ML-SOD CHL 30ML PCA SYRINGE IV PRN (08:00)
[2018-05-01] MEDS: METOCLOPRAMIDE HCL 10 MG/2ML VIAL IV SCH ×4 (08:09→20:44)
[2018-05-01] MEDS: XELJANZ 5 MG PO SCH ×2 (08:09→17:35)
[2018-05-01] MEDS: LORATADINE 10 MG TAB PO SCH (08:09)
[2018-05-01] MEDS: HYDROXYCHLOROQUINE SULFATE 200 MG TAB PO SCH (08:09)
[2018-05-01] MEDS: LIDOCAINE 5% PATCH TP SCH ×2 (08:10→09:44)
[2018-05-01] MEDS: LISINOPRIL 20 MG TAB PO SCH (08:10)
[2018-05-01] MEDS: AZITHROMYCIN 500MG/NS 250 ML 250 ML IV SCH (08:13)
[2018-05-01] MEDS ORDERED: HYDROCHLOROTHIAZIDE 25 MG TAB PO SCH (09:00)
--- NOTE | 2018-05-01 09:45 | Progress Note ---
DATE: The patient was transferred to the intensive care unit yesterday and started on a FIELD CASE MANAGER pump. He has had some pain relief with this. The staff placed a Catalan, and he had 1700 mL of residual urine in his bladder. The patient was started on vancomycin yesterday afternoon. He was seen by ID for his temperature. His blood cultures have subsequently grown out staph aureus. PHYSICAL EXAMINATION VITALS: Temperature is 99.8 and the pulse is 123. His blood pressure is 146/101. He is on a FIELD CASE MANAGER pump. He is receiving intravenous fluids. HEENT: Shows on facial swelling or erythema. The nasal mucosa is normal. The oropharynx is normal. LYMPHATICS: Shows no submandibular, cervical or supraclavicular adenopathy. CARDIAC: Reveals a regular rate and rhythm with a normal S1 and S2. There are no murmurs or rubs. LUNGS: Auscultation of the lungs reveals fair breath sounds bilaterally. There is no wheezing. ABDOMEN: Soft and nontender. There is no rebound. EXTREMITIES: Shows swelling of the right knee and increased warmth in the knee. He has a scar from a prior prosthetic joint infection. The BUN to creatinine ratio is 8 to 0.6. The sodium is 125, potassium is 3.1. The bicarbonate has decreased to 20. The white blood cell count is 4.2 and hemoglobin is 11.5. The platelet count is 107,000. IMPRESSION 1. Staphylococcus bacteremia with severe sepsis. 2. Possible prosthetic joint infection in the right knee. 3. Persistent back pain with computerized tomography scan of the spine pending. 4. Polyarticular rheumatoid arthritis. 5. Chronic degenerative inflammatory polyneuropathy. PLAN: The patient will be continued on vancomycin. We are awaiting the results of the CT scan of the back. Orthopedic consult for possible aspiration of the right knee. The patient may also require imaging of the knee. Continue FIELD CASE MANAGER for pain control. Continue intravenous fluids. Monitor blood counts. Monitor sodium. Discussed the case with Bill, nurse practitioner for Dr. Juarez, Dr. Everett of infectious disease, Dr. Mackay of pain management, Dr. Zhu of neurology, nursing, the patient, and the . Greater than 35 minutes during two separate visits in direct critical care time. Job#: [id number] NOLVIA LUCIANO
--- NOTE | 2018-05-01 10:31 | Diagnostic Imaging Report ---
History: Fall 2 weeks ago Comparison studies: None Technique:: Axial were obtained through the cervical, thoracic and lumbar regions. Coronal and sagittal images reconstructed from the axial data. Intravenous contrast: None Findings: Mild motion artifact degrades image quality, limiting examination Fractures: None. Soft tissues:No gross abnormalities . Atlantoaxial articulation: Degenerative changes with decreased predental space, sclerosis, marginal osteophytes and asymmetric distance between is C1 lateral masses.. Alignment: Straightening of the cervical lordosis. Normal lumbar lordosis. Normal thoracic kyphosis. Mild dextrocurvature at the mid thoracic spine, mild levocurvature at the thoracolumbar junction and dextrocurvature of the lower lumbar spine with apex at L4. Cervicomedullary junction: No abnormalities. The foramen magnum is patent. Soft tissues: Increased prevertebral soft tissue thickening at the upper cervical spine. Fatty stranding at the paraspinal soft tissues on the lower lumbar spine extending to the left upper pelvis. Atherosclerotic calcifications of the aorta, coronary arteries, carotid bulbs. Paraspinal muscles: Unremarkable Spinal cord: Can not be evaluated. Anterior fusion with plate and screws from C3 through C5 Vertebrae: Diffuse bone demineralization Cortical step-off at C5 superior endplate and C5 lateral vertebral body. Without significant loss of height or retropulsion. Minimal wedge deformity at T12 and L1 vertebral body without likely chronic in etiology.. Fragmented osteophytes at L1-L2 with associated cortical step-off. No other acute fractures of the lumbar spine vertebral bodies or sacrum . Degenerative changes: Cervical spine : Uncinate process and facet hypertrophy results in severe foraminal narrowing at C5 3-4 on the right, C5-6 bilaterally, C6-7 bilaterally and C7-T1 bilaterally. Moderate foraminal narrowing at C3 3-4 on the left, C4-5 bilaterally. Posterior disc osteophyte complex results in severe canal stenosis at C5-6 Thoracic spine : Is degeneration with decreased intervertebral space more significant at the upper thoracic spine multiple Schmorl nodes at the lower thoracic spine. Grossly patent canal and foramina Lumbar spine : At L1-L2, disc degeneration with decreased intervertebral space. Diffuse disc bulge and facet hypertrophy results in moderate canal stenosis and moderate bilateral foraminal narrowing. At L2-3, disc degeneration with decreased space and bilateral vacuum disc phenomenon. Diffuse disc bulge and left facet hypertrophy results in moderate canal stenosis and moderate bilateral foraminal narrowing. At L3-4, obliterated intervertebral space, posterior disc osteophyte complex and moderate facet hypertrophy results in severe canal stenosis and moderate bilateral foraminal narrowing. At L4-L5, disc degeneration with decreased space and likely disc phenomenon. Diffuse disc osteophyte complex and moderate bilateral facet hypertrophy results in severe canal stenosis and severe bilateral foraminal narrowing At L5-S1. Diffuse disc osteophyte complex and moderate facet hypertrophy results in mild canal stenosis, narrowing of the right subarticular recess and severe bilateral foraminal narrowing. IMPRESSION: 1. Motion artifact limits the evaluation. Superior C5 endplate age indeterminate fracture without significant retropulsion or loss of height. Prevertebral soft tissue thickening in the upper and mid cervical spine. MRI of the cervical spine are recommended for further evaluation 2. Multilevel moderate to severe degenerative foraminal narrowing from C3 through T1. Severe degenerative canal stenosis at C5-6. 3. Anterior fusion of the cervical spine from C3 through C5. 4. Fragmented osteophytes at the lumbosacral junction in its anterior aspect, could be related to fractured osteophytes with associated soft tissue edema. No other acute abnormality of the lumbar spine. Degenerative changes of the T and L spine as described above. 5. No acute abnormality of the thoracic spine. 6. Cannot exclude ligament, spinal cord and or vascular abnormalities on the basis of this examination. The above findings was reported and acknowledged by ER physician at 10:30 AM 05/01/2018 Signed by: DR Michael Mckinley M.D. on 05/01/2018 11:15 AM
[2018-05-01] MEDS: IMMUNE GLOBULIN IV SCH (13:00)
[2018-05-01] MEDS ORDERED: POTASSIUM CHLORIDE 20 MEQ TAB CR PO ONE (14:00)
[2018-05-01] MEDS ORDERED: ALBUTEROL/IPRATROPIUM 3 ML NEB NEB PRN (15:30)
[2018-05-01] MEDS: SENNA-S TABLET PO SCH (17:36)
--- NOTE | 2018-05-01 20:03 | Diagnostic Imaging Report ---
EXAM: US ABDOMEN COMPLETE INDICATION: Possible hepatitis C, febrile illness COMPARISON: None TECHNIQUE: Transverse and longitudinal oliva scale and color doppler sonographic images of the upper abdomen were obtained. FINDINGS: LIVER 15 cm in the right midclavicular line. Normal echogenicity, normal contour, no masses. SPLEEN 8.6 cm in maximum diameter. Normal echogenicity, no masses. GALLBLADDER Small amount of adherent sludge. No wall thickening or pericholecystic fluid. Negative sonographic Kapadia's sign. BILE DUCTS No intra nor extra-hepatic biliary dilation. Common bile duct measures 0.3 cm PANCREAS: Visualized portions are normal. RIGHT KIDNEY: 11.2 x 6.3 x 3.7 cm Echogenicity: Normal Collecting System: No hydronephrosis Stones: None Cyst/Mass: None LEFT KIDNEY: 12.2 x 6.9 x 5.4 cm Echogenicity: Normal Collecting System: No hydronephrosis Stones: None Cyst/Mass: None VESSELS: Aorta: Visualized portions are within normal size limits Inferior Vena Cava: Visualized portions are normal Main Portal Vein: 0.4 cm, normal size with hepatopetal flow. FREE FLUID: None IMPRESSION: Normal appearance of the liver. Signed by: Dr. Liliana Hardy M.D. on 05/01/2018 8:00 PM
[2018-05-01] MEDS: TRAZODONE HCL 50 MG TAB PO SCH (20:44)
[2018-05-01] MEDS: LABETALOL HCL 5 MG/ML 20ML VIAL IV PRN (22:07)
[2018-05-01 23:56] LABS: BODY FLUID APPEARANCE CLOUDY; BODY FLUID COLOR YELLOW; BODY FLUID TYPE SYNOVIAL
[2018-05-01 23:58] LABS: LYMPHOCYTES,BODY FLUID 1 %; MONO/MACROPHG,BODY FLUID 2 %; NEUTROPHILS,BODY FLUID 97 %; RBC,BODY FLUID 1485 cells/uL; WBC,BODY FLUID 71404 cells/uL
[2018-05-02] VITALS (49 sets, daily range): BP systolic 115–163; BP diastolic 84–118
[2018-05-02] MEDS: HYDROMORPHONE 0.2MG/ML-SOD CHL 30ML PCA SYRINGE IV PRN ×3 (00:23→20:48)
[2018-05-02] MEDS: SODIUM CHLORIDE 0.9% 1000ML 1,000 ML IV SCH (00:57)
[2018-05-02] MEDS: VANCOMYCIN HCL 1.25 GM in SODIUM CHLORIDE 0.9% 250ML 300 ML IV SCH (05:00)
[2018-05-02 05:29] LABS: ALANINE AMINOTRANSFERASE 23 IU/L (0-55); ALBUMIN 1.9 g/dL (3.5-5.0); ALBUMIN/GLOBULIN RATIO 0.3 (0.8-2.0); ALKALINE PHOSPHATASE 46 IU/L (40-150); ANION GAP 12.9 mmol/L (8-16); BLOOD UREA NITROGEN 9 mg/dL (7-26); BUN/CREATININE RATIO 14 (6-25); CALCIUM 8.3 mg/dL (8.4-10.2); CARBON DIOXIDE 25 mmol/L (22-29); CHLORIDE 88 mmol/L (98-107); CREATININE, SERUM 0.63 mg/dL (0.72-1.25); EST GLOMERULAR FILTRATION RATE > 60 ML/MIN (60-); GLUCOSE 100 mg/dL (74-118); SODIUM 123 mmol/L (136-145)
[2018-05-02 05:31] LABS: BASOPHILS % 0.3 % (0.0-1.0); EOSINOPHILS % 0.4 % (0.0-6.0); HEMATOCRIT 32.3 % (38.2-49.6); LYMPHOCYTES # (AUTO) 0.5 (1.0-3.2); LYMPHOCYTES % 7.1 % (18.0-39.1); MEAN CORPUSCULAR HEMOGLOBIN 35.2 pg (28-32); MEAN CORPUSCULAR HGB CONC 37.2 g/dL (31-35); MEAN CORPUSCULAR VOLUME 94.7 fL (81-99); MONOCYTES % 15.3 % (4.4-11.3); NEUTROPHILS # (AUTO) 5.1 (2.1-6.9); NEUTROPHILS % 76.2 % (38.7-80.0); PLATELET COUNT 138 x10e3/uL (140-360); POTASSIUM 2.9 mmol/L (3.5-5.1); RED BLOOD COUNT 3.41 x10e6/uL (4.3-5.7); RED CELL DISTRIBUTION WIDTH 13.4 % (11.7-14.4)
[2018-05-02] MEDS: LABETALOL HCL 5 MG/ML 20ML VIAL IV PRN ×2 (06:24→15:02)
[2018-05-02] MEDS ORDERED: POTASSIUM CHLORIDE 20MEQ/100ML 200 ML IV ONE (06:30)
[2018-05-02] MEDS: METOCLOPRAMIDE HCL 10 MG/2ML VIAL IV SCH ×4 (07:30→22:23)
[2018-05-02] MEDS: LORATADINE 10 MG TAB PO SCH (08:31)
[2018-05-02] MEDS: XELJANZ 5 MG PO SCH ×2 (08:31→16:39)
[2018-05-02] MEDS: HYDROXYCHLOROQUINE SULFATE 200 MG TAB PO SCH (08:31)
[2018-05-02] MEDS: SENNA-S TABLET PO SCH ×2 (08:32→16:40)
[2018-05-02] MEDS: LISINOPRIL 20 MG TAB PO SCH (08:32)
--- NOTE | 2018-05-02 09:28 | Consultation ---
DATE OF CONSULTATION: May 02, 2018 ATTENDING PHYSICIAN: Dr. Campbell Patient seen and examined today. This is a 67-year-old gentleman with a past medical history that includes hypertension, rheumatoid arthritis, chronic demyelinating inflammatory polyneuropathy. The patient is currently following with Dr. Mustafa, neurologist. He is also following with Dr. Vergara for rheumatology. The patient was admitted with worsening lower back and left shoulder pain. The patient has advanced rheumatoid arthritis receiving TNF and IVIG. He had pancytopenia at admission. The patient is feeling very fatigued, lethargic and tired. Denies any weight loss or night sweats. Patient is on Plaquenil. His condition improved with pain medication. PAST MEDICAL HISTORY: Advanced rheumatoid arthritis, chronic demyelinating inflammatory polyneuropathy, hypertension. ALLERGIES: REVIEWED. MEDICATIONS: List reviewed. SOCIAL HISTORY: No smoking, alcohol or drugs. FAMILY HISTORY: Reviewed and noncontributory. REVIEW OF SYSTEMS: A 12-point review of systems is as per HPI. PHYSICAL EXAMINATION GENERAL: Alert, awake, communicative. HEENT: Normocephalic and atraumatic. Sclerae pink and conjunctivae clear. NECK: Supple. CHEST: Decreased breath sounds at the bases. CARDIOVASCULAR: Regular rate and rhythm. ABDOMEN: Soft, nontender. EXTREMITIES: Patient had bilateral knee swelling, chronic rheumatoid changes. ELECTRICAL INSTRUMENT REPAIRER: Intact. LABS: Reviewed. IMAGING: Reviewed. ASSESSMENT AND PLAN 1. Patient with history of severe polyarticular rheumatoid arthritis, chronic demyelinating inflammatory polyneuropathy, hypertension, admitted with worsening back pain. Patient had pancytopenia at admission. Likely etiologies include medication causing pancytopenia including Plaquenil. Other possibility is rheumatoid arthritis causing hypersplenism and Felty syndrome. Recommendations are ultrasound of the abdomen, start the patient on folic acid and monitor the patient closely. 2. Anemia. Likely etiology of anemia is anemia of chronic disease secondary to rheumatoid arthritis. Current hemoglobin is 11.5. Recommendation is observation and Procrit treatment is hemoglobin drops below 10. 3. Rheumatoid arthritis. Patient currently on medications including pain medication. Clinical symptoms are improving. Continue current treatment. 4. Possible cellulitis. Patient is following ID. 5. Will continue remaining care. Will follow the patient closely. RAVI DOTY MD Job#: [id number] GERMÁN
[2018-05-02] MEDS: FOLIC ACID 1 MG TAB PO SCH (10:07)
[2018-05-02] MEDS ORDERED: DOXYCYCLINE 100MG/NS 100ML 100 ML IV SCH (14:00)
[2018-05-02] MEDS ORDERED: SODIUM CHLORIDE 0.9% IV SCH (14:30)
[2018-05-02] MEDS ORDERED: RIFAMPIN IV SCH (14:30)
[2018-05-02] MEDS: NAFCILLIN SOD 2 GM/NS 100ML 100 ML IV SCH ×3 (14:38→22:24)
--- NOTE | 2018-05-02 14:51 | Progress Note ---
DATE: PULMONARY/CRITICAL CARE PROGRESS NOTE The patient had a knee aspiration yesterday. He had 71,000 white cells in the joint fluid. His blood counts have improved. He still has a low sodium. PHYSICAL EXAMINATION VITALS: The patient is afebrile. The vital signs are stable. HEENT: No facial swelling or erythema. The nasal mucosa is normal. CARDIAC: Exam reveals regular rate and rhythm with normal S1 and S2. LUNGS: Auscultation of the lungs reveals clear breath sounds bilaterally. ABDOMEN: Soft and nontender. IMPRESSION 1. Staphylococcus aureus bacteremia with severe sepsis. 2. 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 3. Syndrome of inappropriate antidiuretic hormone and recent hyponatremia. 4. Polyarticular rheumatoid arthritis. 5. Abnormal cervical spine CT scan. 6. Pancytopenia. PLAN 1. The patient has been switched to nafcillin and rifampin. 2. Awaiting further input from orthopedics regarding removal of the prosthetic joint. 3. Awaiting neurosurgery consultation regarding the abnormal C-spine. 4. Fluid restriction and monitoring of sodium. Job#: [id number]
[2018-05-02] MEDS: DOXYCYCLINE 100MG/NS 100ML 100 ML IV SCH (16:39)
[2018-05-02] MEDS: TRAZODONE HCL 50 MG TAB PO SCH (22:23)
[2018-05-03] VITALS (35 sets, daily range): BP systolic 119–149; BP diastolic 76–120
[2018-05-03] MEDS: NAFCILLIN SOD 2 GM/NS 100ML 100 ML IV SCH ×5 (02:20→18:28)
[2018-05-03] MEDS: HYDROMORPHONE 0.2MG/ML-SOD CHL 30ML PCA SYRINGE IV PRN ×2 (03:40→18:07)
[2018-05-03] MEDS: DOXYCYCLINE 100MG/NS 100ML 100 ML IV SCH ×2 (03:58→16:17)
[2018-05-03 04:41] LABS: BASOPHILS % 0.3 % (0.0-1.0); EOSINOPHILS # (AUTO) 0.1 (0.0-0.4); EOSINOPHILS % 0.6 % (0.0-6.0); HEMATOCRIT 32.5 % (38.2-49.6); HEMOGLOBIN 11.6 g/dL (14.0-18.0); LYMPHOCYTES # (AUTO) 0.5 (1.0-3.2); LYMPHOCYTES % 5.2 % (18.0-39.1); MEAN CORPUSCULAR HEMOGLOBIN 35.2 pg (28-32); MEAN CORPUSCULAR HGB CONC 35.7 g/dL (31-35); MONOCYTES # (AUTO) 1.5 (0.2-0.8); MONOCYTES % 14.7 % (4.4-11.3); NEUTROPHILS # (AUTO) 7.7 (2.1-6.9); NEUTROPHILS % 77.5 % (38.7-80.0); PLATELET COUNT 159 x10e3/uL (140-360); RED CELL DISTRIBUTION WIDTH 14.2 % (11.7-14.4)
[2018-05-03 04:59] LABS: MEAN CORPUSCULAR VOLUME 98.5 fL (81-99)
[2018-05-03 05:09] LABS: ALANINE AMINOTRANSFERASE 19 IU/L (0-55); ALBUMIN 1.8 g/dL (3.5-5.0); ALBUMIN/GLOBULIN RATIO 0.4 (0.8-2.0); ALKALINE PHOSPHATASE 60 IU/L (40-150); ANION GAP 13.9 mmol/L (8-16); BUN/CREATININE RATIO 24 (6-25); CALCIUM 8.4 mg/dL (8.4-10.2); CARBON DIOXIDE 24 mmol/L (22-29); CHLORIDE 89 mmol/L (98-107); CREATININE, SERUM 0.63 mg/dL (0.72-1.25); EST GLOMERULAR FILTRATION RATE > 60 ML/MIN (60-); GLUCOSE 90 mg/dL (74-118); SODIUM 124 mmol/L (136-145)
[2018-05-03 05:24] LABS: BLOOD UREA NITROGEN 15 mg/dL (7-26); POTASSIUM 2.9 mmol/L (3.5-5.1)
[2018-05-03] MEDS: METOCLOPRAMIDE HCL 10 MG/2ML VIAL IV SCH ×3 (07:56→16:38)
[2018-05-03] MEDS: LISINOPRIL 20 MG TAB PO SCH (08:08)
[2018-05-03] MEDS: FOLIC ACID 1 MG TAB PO SCH (08:08)
[2018-05-03] MEDS: LORATADINE 10 MG TAB PO SCH (08:08)
[2018-05-03] MEDS: SENNA-S TABLET PO SCH ×2 (08:08→16:38)
[2018-05-03] MEDS ORDERED: POTASSIUM CHLORIDE 20 MEQ TAB CR PO NR ×2 (08:49→09:00)
[2018-05-03] MEDS ORDERED: MAGNESIUM SULF 1GRAM/DEXTROSE 100 ML IV ONE (09:00)
--- NOTE | 2018-05-03 09:40 | Progress Note ---
DATE: May 03, 2018 The patient was seen and examined today. The patient appears comfortable. Clinically doing better. Currently, [facility] PHYSICAL EXAMINATION GENERAL: Alert, awake and communicative. HEENT: Normocephalic and atraumatic. Sclerae pink. Conjunctivae clear. NECK: Supple. CHEST: Clear to auscultation. CARDIOVASCULAR: Regular rate and rhythm. ABDOMEN: Soft and nontender. EXTREMITIES: Bilateral knee swelling. Chronic changes seen . SKIN: Intact. LABS AND IMAGING: Reviewed. ASSESSMENT AND PLAN: The patient with history of severe polyarticular rheumatoid arthritis, chronic demyelinating inflammatory polyneuropathy, hypertension, admitted with worsening back pain. The patient had pancytopenia. His current count is improving. Clinical condition is improving. Current recommendation to continue current treatment. I do not recommend any hematological intervention. Try to avoid pancytopenic medications. The patient also had anemia. Hemoglobin 11. Workup consistent with anemia of chronic disease. Recommendation is close observation. Still hemoglobin dropped below 10. The patient is scheduled to transfer to [facility]. Will continue remaining care. Will follow the patient. Job#: [id number] NOLVIA
[2018-05-03] MEDS ORDERED: RIFAMPIN 300 MG CAP PO SCH (11:30)
[2018-05-03] MEDS ORDERED: DEXMEDETOMIDINE HCL 200 MCG in SODIUM CHLORIDE 0.9% 50ML 48 ML IV PRN (11:30)
--- NOTE | 2018-05-03 19:39 | Consultation ---
DATE OF CONSULTATION: May 03, 2018 REASON FOR CONSULTATION: Rule out cervical and lumbar fractures. HISTORY OF PRESENT ILLNESS: Patient is a 67-year-old man who is well known to me with rheumatoid arthritis, chronic inflammatory demyelinating polyneuropathy, and extensive cervical and lumbar degenerative disk disease. He has had a previous C3 to C5 anterior cervical decompression and fusion by me. He is now admitted with sepsis and a septic right knee where he has had previous total right knee replacement. He has been confused and complaining of chronic low back pain for the past week. He had a CT of the cervical and lumbar spine. The possibility of chronic fractures was raised and I was consulted. However, his main issue remains his septic knee for which he is getting transferred to another hospital today. On physical examination, the patient is on Dilaudid PASTORAL ASSISTANT. He is slightly disoriented. He is otherwise fully awake and follows commands well and speaks well. Motor strength is full and symmetric in the upper extremities except for chronic shoulder problems which limit his range of motion. He can lift both legs against gravity. His right knee is painful and swollen. Deep tendon reflexes are absent throughout. Plantar responses are flexor. CT's of the cervical and lumbar spine and thoracic spine were reviewed. There are no acute fractures. There is settling of his bone graft in the superior endplate of C5, which has been interpreted as a fracture, but this is not an acute fracture and does not require any further treatment. He has extensive degenerative disk disease in his lumbar spine and there is fragmentation of an anterior osteophyte in the lumbar spine, away from his vertebral body which again and is a chronic finding and does not require any intervention. In summary, he does not have an acute fracture of his cervical or lumbar or thoracic spine and does not require immediate intervention. His main issue is his right knee for which he will require surgery and IV antibiotic treatment. After he has recovered from this problem, he may follow up with me as an outpatient at which time I will proceed with an MRI of the lumbar spine if he is still having low back pain at that time. Job#: [id number]
== END 2018-05-03 20:41 | disposition short-term general hospital (02) | DRG 559 ==
LOC: ER 06:25 → ERHOLD 13:08 → MED/SURG 17:29 → ICU 04-30 16:34
PROVIDERS: ADMIT Internal Medicine; ATTEND Internal Medicine
DX: T84.53XA Infection and inflammatory reaction due to internal right knee prosthesis, initial encounter (principal); A41.02 Sepsis due to Methicillin resistant Staphylococcus aureus; R65.20 Severe sepsis without septic shock; G92 Toxic encephalopathy; G61.81 Chronic inflammatory demyelinating polyneuritis; E22.2 Syndrome of inappropriate secretion of antidiuretic hormone; D61.818 Other pancytopenia; M00.061 Staphylococcal arthritis, right knee; M06.9 Rheumatoid arthritis, unspecified; Z98.1 Arthrodesis status; D72.819 Decreased white blood cell count, unspecified; M50.30 Other cervical disc degeneration, unspecified cervical region; M51.36 Other intervertebral disc degeneration, lumbar region; D64.9 Anemia, unspecified; D63.8 Anemia in other chronic diseases classified elsewhere; M05.00 Felty's syndrome, unspecified site; Z91.81 History of falling; D69.6 Thrombocytopenia, unspecified; J44.9 Chronic obstructive pulmonary disease, unspecified; R26.9 Unspecified abnormalities of gait and mobility; M10.9 Gout, unspecified; M25.512 Pain in left shoulder; M25.511 Pain in right shoulder; T42.6X5A Adverse effect of other antiepileptic and sedative-hypnotic drugs, initial encounter
CPT/HCPCS: 36415; 71045; 72125; 72128; 72131; 74176; 76700; 80048; 80053; 80076; 80202; 81001; 82550; 82553; 82948; 83605; 83615; 83735; 84484; 85025; 85610; 85730; 87040; 87071; 87075; 87086; 87102; 87116; 87186; 87205; 87206; 87400; 88184; 89051; 89060; 93005; 93306; 93971; 94640; 96360; 97139; 99285; J0360; J0456; J0696; J1170; J1335; J1561; J1885; J2270; J2405; J2765; J3370; J3475; J3480; J7030; J7040; J7050